=== PATIENT | male | born 1955 | race Caucasian/White ===

== ENCOUNTER 2016-12-09 08:54 | Outpatient (CLI) | payer BC ==
[2016-12-09 12:03] LABS: Hematocrit 43.1 % (42.0-52.0); Mean Platelet Volume 7.5 fL (7.4-10.4); Red Blood Cell (RBC) Count 4.41 mill/uL (4.70-6.10); White Blood Cell (WBC) Count 9.9 thou/uL (4.8-10.8)
== END 2016-12-09 08:55 | disposition home or self-care (01) ==
LOC: LABBT 08:54
PROVIDERS: ATTEND Internal Medicine Cardiovascular Disease
DX: Z01.810 Encounter for preprocedural cardiovascular examination (principal); I25.10 Atherosclerotic heart disease of native coronary artery without angina pectoris
CPT/HCPCS: 85027

== ENCOUNTER 2016-12-14 05:44 | Day surgery (SDC) | payer BC ==
[2016-12-09 09:18] VITALS: BMI 24.4
[2016-12-14] MEDS ORDERED: Midazolam HCl 2 mg/2 ml Vial ONE (07:39)
[2016-12-14] MEDS ORDERED: Fentanyl 100 MCG/2 ML VIAL ONE ×3 (07:40→09:06)
[2016-12-14] MEDS ORDERED: Nitroglycerin 100MG/250ML BOT 250 ML ONE (07:52)
[2016-12-14] MEDS ORDERED: traMADol HCl 50 MG TAB ONE (12:51)
[2016-12-14] MEDS ORDERED: Iopamidol 370 76% 100 ML VIAL ONE (15:52)
--- NOTE | 2016-12-14 17:07 | CON ---
DATE OF CONSULTATION: 12/14/2016 HISTORY OF PRESENT ILLNESS: This is a 61-year-old gentleman with cardiovascular risk factors of smo dyllan, hypertension, and untreated dyslipidemia. He has been having exertional bilateral jaw discomf ort radiating down into his left arm, occurring with increasing frequency with a couple of episodes at rest at night. Typically the symptoms occur with exertion, although he is not very active. Exer tion mainly walking in his case. He has not had a stress test, but did undergo cardiac catheterizat ion today demonstrating a moderate lesions in the LAD and diagonal. There are some mild to moderate ostial circumflex disease and a codominant normal right coronary artery. Family history is positiv e for heart disease in a brothers and father. His also has had previous coronary bypass grafti ng. As mentioned, he has hypertension and dyslipidemia, but has been intolerant of statins. He has been followed along with EKGs and cardiac echo for a number of years, although only recently began having symptoms. In 2006, he had a 50% distal LAD lesion. His ejection fraction has been estimated to be greater than 50% in the past, although has not had an echo that I am aware of in about 10 yea rs. PAST MEDICAL HISTORY: Includes otherwise Chiari malformation type 1, which has been repaired. PAST SURGICAL HISTORY: Includes Chiari malformation repair, and anterior approach to cervical spine surgery most recently by Dr. Bearden, previous right shoulder surgery by Dr. Arzate, previous eduardo ateral knee surgeries. MEDICATIONS: Include Lunesta 3 mg at bedtime, aspirin 81 a day, Xanax 1 mg 3 times a day as needed, aripiprazole 5 mg at bedtime, citalopram 40 mg daily, lisinopril 5 mg at bedtime, Toprol-XL 25 mg d aily, nitroglycerin for pain which does relieve his jaw and arm pain and most recently, Crestor 10 m g at bedtime. ALLERGIES: CRESTOR causing muscle aches, SIMVASTATIN muscle aches, ATORVASTATIN muscle aches. PHYSICAL EXAMINATION: GENERAL: Alert, cooperative gentleman. Height 71 inches, weight 175 pounds. VITAL SIGNS: Heart rate 90, blood pressure 130/80. NECK EXAMINATION: No carotid bruits. LUNGS: Clear to auscultation. CARDIAC EXAMINATION: Regular rate and rhythm. No murmurs. ABDOMEN: Soft, nontender. EXTREMITIES: He has a right arm dominant and has intact pulses throughout both upper and lower extr emities including all pedal pulses. He has no peripheral edema. NEUROLOGIC EXAM: The patient is appropriate and oriented. ASSESSMENT: I have reviewed the cardiac catheterization and the patient does have number of lesions in his left anterior descending and the worst of which may be a 70% with some contrast dropout. He has about a 50-70% stenosis in the mid diagonal. Circumflex is codominant with a relatively normal looking vessels except perhaps an ostial stenosis that is bhon-zh-ieyyrsor right coronary artery is normal. PLAN: I have discussed the possibility of coronary bypass grafting with the patient; at this time, he is really not interested in proceeding. I have explained that this will relieve his symptoms and he said if the only benefit, then he will continue using his nitroglycerin for relief. I have stat ed that I let him discuss it further with his and I will contact him again by phone after I hav e reviewed the films with Dr. Soria.
== END 2016-12-14 13:50 | disposition home or self-care (01) ==
LOC: CCL 05:44
PROVIDERS: ATTEND Internal Medicine Cardiovascular Disease
DX: I25.119 Atherosclerotic heart disease of native coronary artery with unspecified angina pectoris (principal); I10 Essential (primary) hypertension; E78.5 Hyperlipidemia, unspecified; F17.200 Nicotine dependence, unspecified, uncomplicated; Z88.8 Allergy status to other drugs, medicaments and biological substances; Z79.899 Other long term (current) drug therapy; Z98.890 Other specified postprocedural states; Z82.49 Family history of ischemic heart disease and other diseases of the circulatory system
CPT/HCPCS: 76942; 93458; 99152; C1769; J1644; J2250; J3010

== ENCOUNTER 2016-12-20 09:15 | Inpatient (IN) | payer BC ==
[2016-12-21] MEDS ORDERED: Fentanyl 100 MCG/2 ML VIAL ONE (06:35)
[2016-12-21] MEDS ORDERED: Midazolam HCl 5 mg/5 ml Vial ONE (06:35)
[2016-12-21] MEDS ORDERED: Vecuronium 10 MG VIAL ONE ×2 (06:35→07:32)
[2016-12-21] MEDS ORDERED: Dexmedetomidine 200 MCG/2 ML VIAL ONE (06:35)
[2016-12-21] MEDS ORDERED: Heparin 10,000 UNITS/1 ML VIAL 30,000 UNITS in Sodium Chloride 0.9% 1,000 ML FS SCH (06:45)
[2016-12-21] MEDS ORDERED: Dexamethasone 20 MG/5 ML VIAL ONE (07:32)
[2016-12-21] MEDS ORDERED: Esmolol 100 MG/10 ML VIAL ONE (07:32)
[2016-12-21] MEDS ORDERED: Lidocaine 2% PF 10 ML AMP (For Epidural Use) ONE (07:32)
[2016-12-21] MEDS ORDERED: PHENYLEPHRINE-NS 100 MCG/ML 10 ML SYRINGE ONE (07:32)
[2016-12-21] MEDS ORDERED: Lidocaine 1% PF 5 ML VIAL ONE (07:32)
[2016-12-21] MEDS ORDERED: Ondansetron HCl/PF 4 MG/2 ML Vial ONE (07:32)
[2016-12-21] MEDS ORDERED: Propofol 200 MG/20 ML VIAL ONE (07:32)
[2016-12-21] MEDS ORDERED: Glycopyrrolate 0.2 MG/ML 5 ML SYRINGE ONE (07:32)
[2016-12-21] MEDS ORDERED: Ketorolac Tromethamine 30 MG/ML VIAL ONE (07:32)
[2016-12-21] MEDS ORDERED: Guaifenesin DM 100-10/5 ML UDCUP PO PRN (10:34)
[2016-12-21] MEDS ORDERED: Acetaminophen 325 MG TAB PO PRN ×2 (10:34→11:13)
[2016-12-21] MEDS ORDERED: Bisacodyl 5 MG TAB PO PRN (10:34)
[2016-12-21] MEDS ORDERED: Morphine Sulfate 2 MG/ML SYRINGE SLOW IVP PRN (10:34)
[2016-12-21] MEDS ORDERED: Magnesium 2 GM/NS 0.9% 100 ML 2 GM in Premix Bag 1 BAG IVPB SCH (10:34)
[2016-12-21] MEDS ORDERED: Ondansetron HCl/PF 4 MG/2 ML Vial IVP PRN ×2 (10:34→16:16)
[2016-12-21] MEDS ORDERED: Post-Op Insulin Drip Protocol IVPB ONE (10:34)
[2016-12-21] MEDS ORDERED: Mag-Al 1200 mg/1200 mg/30 ML UDCUP PO PRN (10:34)
[2016-12-21] MEDS ORDERED: Potassium Chloride 20 MEQ/100 ML PREMIX BAG IVPB PRN (10:34)
[2016-12-21] MEDS ORDERED: DOPamine 400 MG/D5W 250 ML 250 ML IVPB PRN (10:34)
[2016-12-21] MEDS ORDERED: Fentanyl 100 MCG/2 ML VIAL SLOW IVP PRN (10:34)
[2016-12-21] MEDS ORDERED: HYDROcodone/Acetaminophen 5/325 mg Tablet PO PRN ×2 (10:34)
[2016-12-21] MEDS ORDERED: Bisacodyl 10 MG SUPP PR PRN (10:34)
[2016-12-21] MEDS ORDERED: Hetastarch 6% 500 ML 500 ML IVPB PRN (10:34)
[2016-12-21] MEDS ORDERED: ALPRAZolam 1 MG TAB PO PRN (10:34)
[2016-12-21] MEDS ORDERED: Nitroglycerin 50 MG/250 ML BOT 250 ML IVPB PRN (10:34)
[2016-12-21] MEDS ORDERED: Promethazine HCl 25 MG/ML VIAL IM PRN ×2 (10:34→16:16)
[2016-12-21] MEDS ORDERED: Phenylephrine 10 MG/NS 250 ML 250 ML IVPB PRN (10:34)
[2016-12-21] MEDS ORDERED: Dextrose 5% in Water 1,000 ML IV PRN (10:36)
[2016-12-21] MEDS ORDERED: Dextrose 50% Abboject 50 ML SYRINGE SLOW IVP PRN (10:36)
[2016-12-21] MEDS: Fentanyl 100 MCG/2 ML VIAL SLOW IVP PRN ×3 (11:17→14:28)
[2016-12-21 11:18] LABS: #Basophils 0.1 thou/uL (0.0-0.2); #Eosinphils 0.3 thou/uL (0.0-0.7); #Lymphocytes 2.9 thou/uL (1.20-3.40); #Monocytes 0.5 thou/uL (0.11-0.59); #Neutrophils 15.8 thou/uL (1.40-6.50); %Basophils 0.3 % (0.0-1.0); %Eosinophils 1.7 % (0.0-10.0); %Lymphocytes 14.7 % (21.0-51.0); %Monocytes 2.5 % (0.0-10.0); Hematocrit 35.8 % (42.0-52.0); Mean Platelet Volume 6.8 fL (7.4-10.4); Red Blood Cell (RBC) Count 3.65 mill/uL (4.70-6.10); White Blood Cell (WBC) Count 19.5 thou/uL (4.8-10.8)
--- NOTE | 2016-12-21 11:19 | OP ---
DATE OF PROCEDURE: 12/21/2016 PREOPERATIVE DIAGNOSIS: Coronary artery disease. POSTOPERATIVE DIAGNOSIS: Coronary artery disease. PROCEDURE: Off pump coronary bypass graft x2, left internal mammary artery to a 2 mm LAD, saphenous vein graft to a 1.5 mm diagonal. SURGEON: Dr. Jw Armstrong REAL PROPERTY APPRAISER: Ortega Lewis M.D. TRANSFUSION: None. PROCEDURE IN DETAIL: After adequate anesthesia had been obtained, I harvested a short section of sa phenous vein from the left thigh. This was a good quality vein. Following this, I performed a medi an sternotomy entering the right pleura with a saw in one small area and then the mammary artery was harvested. After heparinization, the mammary was divided distally and treated with intraluminal pa paverine with good flow. It was passed posterior to the thymus gland. This gland was ultimately pa rtially divided. Following an incision of the pericardium, traction sutures were placed on the left side of the pericardium. Two laparotomy pads were placed behind the heart and after stabilization, the octopus stabilizer was used to immobilize the diagonal. This was opened and was about a 1.5 mm vessel. It was done rather distally due to known plaque in its mid portion. Saphenous vein anasto mosis was completed here. Following this, the LAD was stabilized and a loop passed proximally. The LAD was opened following which the mammary artery was anastomosed to this vessel. Prior to complet ing the suture line, the loop was released from the LAD and there was very minimal flow here; howeve r, there was good flow with release of the mammary flow. After tying this suture the mammary pedicl e was secured to the myocardium. The heart replaced into the pericardium. After permissive hypoten annabelle had been obtained, the aorta was controlled with a partial occluding clamp and a single venous anastomosis performed on the aortic root. Following completion of this, protamine was given to part ially reverse the heparin. Mediastinal and bilateral drains were placed, following which the sternu m was reapproximated with #7 interrupted wire. Vancomycin paste and platelet-enriched blood were us ed on the sternal edges as was platelet-poor plasma. Subcutaneous tissue and skin were closed in la yers.
[2016-12-21 11:22] LABS: PTT 33.7 SEC (22.9-36.1); Prothrombin Time 14.7 SEC (12.0-14.7)
[2016-12-21] MEDS: Sodium Chloride 0.9% 1,000 ML IV SCH (11:22)
[2016-12-21] MEDS: Ketorolac Tromethamine 30 MG/ML VIAL IVP SCH ×3 (11:33→23:12)
[2016-12-21 11:39] LABS: Anion Gap 10 mmol/L (10-20); BUN (Urea Nitrogen) 11 mg/dL (8.4-25.7); Calc. Creatinine Clearance 243 mL/min (70-130); Calcium 7.9 mg/dL (7.8-10.44); Carbon Dioxide 25 mmol/L (22-29); Chloride 110 mmol/L (98-107); Estimated GFR-MDRD Greater than 90
[2016-12-21 11:41] VITALS: BMI 26.2
[2016-12-21] MEDS: Insulin Regular 300 UNITS/3 ML VIAL SC PRN ×2 (12:17→16:17)
[2016-12-21] MEDS ORDERED: traMADol HCl 50 MG TAB PO PRN (12:23)
--- NOTE | 2016-12-21 13:06 | RAD ---
CHEST ONE VIEW: History: Post open heart surgery. Comparison: Chest two view, 12-20-16. FINDINGS: Central venous catheter is present with tip in the right atrium. Heart size is similar. There are opacities along the hilum of both lungs. No pneumothorax. Left thoracostomy is present. Small left effusion. Mediastinal drain is present as well as right thoracostomy drain. IMPRESSION: Expected post-operative findings. No complications. POS: [facility]
[2016-12-21] MEDS ORDERED: fentaNYL 75 mcg/hour Patch TD SCH (14:00)
[2016-12-21] MEDS ORDERED: Zolpidem Tartrate 5 MG TAB PO PRN (16:16)
[2016-12-21] MEDS ORDERED: Naloxone HCl 0.4 mg/ml Vial IV PRN (16:16)
[2016-12-21] MEDS ORDERED: diphenhydrAMINE HCl 50 MG/ML 1 ML VIAL IM/IV PRN (16:16)
[2016-12-21] MEDS ORDERED: diphenhydrAMINE HCl 25 MG CAP PO PRN (16:16)
[2016-12-21 16:25] LABS: Hematocrit 35.6 % (42.0-52.0)
[2016-12-21] MEDS: Fentanyl 5000 MCG/250 ML CADD IV PRN (16:30)
[2016-12-21] MEDS ORDERED: Famotidine/PF 20 mg/2ml Vial SLOW IVP SCH (21:00)
[2016-12-21] MEDS ORDERED: Zolpidem Tartrate 5 MG TAB PO SCH (21:00)
--- NOTE | 2016-12-21 23:26 | CON ---
DATE OF CONSULTATION: 12/21/2016 HISTORY OF PRESENT ILLNESS: Mr. Duncan is a 61-year-old male who underwent coronary artery bypass grafting today. He was extubated in Recovery room. His only complaint is severe substernal pain. PAST MEDICAL HISTORY: 1. Remarkable for admission on 05/27 with altered mental status. It was felt that this was seconda ry to an accidental overdose and at that time, he was discharged on tramadol, Xanax, Hagaman, Lunesta, lisinopril, aspirin, and Celexa. 2. He has a history of Arnold-Chiari malformation. 3. History of chronic pain. 4. History of shoulder surgery on the right. 5. History of depression and anxiety. 6. History of Burgos's palsy. 7. History of hypertension. 8. History of surgery for his Arnold-Chiari malformation in 1979. 9. History of neck surgery. 10. History of bilateral knee surgery for ACL repairs. SOCIAL HISTORY: He is a smoker in the past, it is not clear if he is a drinker. REVIEW OF SYSTEMS: Remarkable only for chest discomfort, otherwise negative. PHYSICAL EXAMINATION: VITAL SIGNS: Blood pressure 104/67, heart rate 80, respiratory rate 22, oximetry is 96. HEENT: Pupils are equal. Sclerae is anicteric. NECK: Supple. LUNGS: Clear anteriorly and laterally. HEART: Regular rhythm. ABDOMEN: Soft and nontender. LABORATORY DATA: White count 19.5, hemoglobin 11.6, platelets 256. Sodium 140, potassium 4.7, chlo ride 110, bicarbonate 25, BUN 11, creatinine 0.8. IMPRESSION: 1. Status post coronary artery bypass grafting with a AHMADI to his LAD, saphenous to his diagonal. 2. Chronic pain with pain complaints out of proportion, what we normally see after surgery, also di scussed with nurse about the fentanyl patch and he says he would like that, but probably Dr. Armstrong's plan which is for a CENTRAL STORES ATTENDANT pump will be more immediate relief and give him some control. He appears t o be stable at this time.
[2016-12-22 04:45] LABS: #Lymphocytes 2.4 thou/uL (1.20-3.40); #Monocytes 1.4 thou/uL (0.11-0.59); #Neutrophils 12.6 thou/uL (1.40-6.50); %Basophils 0.1 % (0.0-1.0); %Lymphocytes 14.4 % (21.0-51.0); %Monocytes 8.6 % (0.0-10.0); Hematocrit 31.8 % (42.0-52.0); Mean Platelet Volume 7.1 fL (7.4-10.4); Red Blood Cell (RBC) Count 3.24 mill/uL (4.70-6.10); White Blood Cell (WBC) Count 16.4 thou/uL (4.8-10.8)
[2016-12-22 04:54] LABS: Anion Gap 12 mmol/L (10-20); BUN (Urea Nitrogen) 20 mg/dL (8.4-25.7); Calc. Creatinine Clearance 111 mL/min (70-130); Carbon Dioxide 22 mmol/L (22-29); Chloride 105 mmol/L (98-107); Estimated GFR-MDRD Greater than 90
[2016-12-22] MEDS: Ketorolac Tromethamine 30 MG/ML VIAL IVP SCH ×4 (06:05→23:19)
[2016-12-22] MEDS: Aspirin 325 MG TAB PO SCH (08:37)
--- NOTE | 2016-12-22 09:17 | RAD ---
AP CHEST: Indication: Status post open heart surgery. Comparison: 12-21-16 FINDINGS: No pneumothorax is evident. There is increasing atelectasis within both lung bases. Bilateral thorac ostomy tube, mediastinal drain and right subclavian central venous catheter are stable. Sternotomy c hanges are similar. There is partial visualization of an ACDF involving the lower cervical spine. IMPRESSION: 1. Increasing atelectasis within both lung bases. 2. No pneumothorax. 3. Tubes and lines are stable. POS: [facility]
[2016-12-22 14:17] LABS: Oxyhemoglobin 95.4 % (94.0-97.0); Sodium 140 mmol/L (135-148)
[2016-12-22 14:24] LABS: Oxyhemoglobin 94.5 % (94.0-97.0); Sodium 141 mmol/L (135-148)
[2016-12-22 14:38] LABS: Mode OR ABG; Vent YES
[2016-12-22 14:42] LABS: Mode OR ABG; Vent YES
--- NOTE | 2016-12-22 16:54 | PRG ---
DATE OF SERVICE: 12/22/2016 SUBJECTIVE: Mr. Duncan is much more cooperative today. He was actually tearful when I was in the room and was apologizing for his behavior yesterday. I have explained to him that he did nothing or said nothing offensive to me, but apparently he said something do his that led to some causing in her leaving, angry. OBJECTIVE: VITAL SIGNS: Currently 97/51, heart rate 75, respiratory rate 21, and oximetry is 90%. LUNGS: Remarkable for equal breath sounds. HEART: Regular rhythm. ABDOMEN: Soft. LABORATORY DATA: White count 16.4, hemoglobin 10.6, platelets 257. Electrolytes are normal. Intak e and output negative 194. IMPRESSION: 1. Status post coronary bypass grafting, clinically stable. 2. Tobacco use up until this admission with no wheezing. 3. History of opiate use and a drug overdoses in the past, on a SYSTEMS INTEGRATOR pump. He appeared stable at th is time.
[2016-12-23] MEDS: Ketorolac Tromethamine 30 MG/ML VIAL IVP SCH (04:54)
[2016-12-23] MEDS ORDERED: Guaifenesin DM 100-10/5 ML UDCUP PO PRN (06:57)
[2016-12-23] MEDS ORDERED: Nitroglycerin 0.4 MG TAB 1 EACH SL PRN (06:57)
[2016-12-23] MEDS ORDERED: diphenhydrAMINE HCl 25 MG CAP PO PRN (06:57)
[2016-12-23] MEDS ORDERED: Artificial Tears 18 DROP/0.9 ML EA EYE PRN (06:57)
[2016-12-23] MEDS ORDERED: Bisacodyl 5 MG TAB PO PRN (06:57)
[2016-12-23] MEDS ORDERED: Bisacodyl 10 MG SUPP PR PRN (06:57)
[2016-12-23] MEDS ORDERED: Mineral Oil ENEMA PR PRN (06:57)
[2016-12-23] MEDS ORDERED: Mag-Al 1200 mg/1200 mg/30 ML UDCUP PO PRN (06:57)
[2016-12-23] MEDS: Aspirin 325 MG TAB PO SCH (09:50)
[2016-12-23] MEDS: ALPRAZolam 1 MG TAB PO PRN ×2 (12:25→22:15)
[2016-12-23] MEDS ORDERED: ALPRAZolam 1 MG TAB PO SCH (15:00)
[2016-12-23] MEDS: Fentanyl 5000 MCG/250 ML CADD IV PRN (16:58)
--- NOTE | 2016-12-23 17:16 | PRG ---
DATE OF SERVICE: 12/23/2016 SUBJECTIVE: Mr. Duncan today is complaining of left shoulder and right hip pain. He says it was s imilar pain yesterday morning and it went away. OBJECTIVE: VITAL SIGNS: Stable. He is afebrile, heart rate 60, respiratory rate is 18, oximetry is 91 on 2 li ters, blood pressure 125/60. : Bladder was scanned it only has 125 mL of urine in his [place] is removed this morning. LUNGS: Clear. HEART: Regular rhythm. LABORATORY DATA: White count 16.4, hemoglobin 10.6, platelets 257,000. Electrolytes are normal. IMPRESSION: 1. Status post coronary artery bypass grafting. 2. Tobacco use. 3. History of opiate use and an inadvertent drug overdose in the past, now on a CARE MANAGEMENT ASSISTANT pump. Pain man agement will continue to monitor his CARE MANAGEMENT ASSISTANT. He is not clinically showing signs of having any significant obstructive lung disease with his histo ry of tobacco abuse.
[2016-12-23] MEDS: Simethicone Chewable 80 MG TAB PO PRN (22:15)
[2016-12-23] MEDS: Zolpidem Tartrate 5 MG TAB PO PRN (22:16)
[2016-12-24] MEDS ORDERED: Milk Of Magnesia 30 ML UDCUP PO PRN (06:11)
[2016-12-24] MEDS ORDERED: Mometasone/Formoterol 120 PUFF INHALER INH SCH ×2 (08:07→08:30)
--- NOTE | 2016-12-24 08:22 | PRG ---
DATE OF SERVICE: 12/24/2016 He continues to have pain in different places. He tells me and his tells me he has a history o f panic attacks as well as a conversion disorder. Obviously this makes it difficult to interpret th e severity of his pain. I discussed adjusting medications, but at this point in time it is probably better just to keep him on his pain medicine via [employer]/PATTERN ILLUSTRATOR pump. He walked 8-9 times yesterday according to the . PHYSICAL EXAMINATION: LUNGS: His lungs are clear. HEART: Regular rhythm. ABDOMEN: Abdomen is soft. VITAL SIGNS: He is afebrile, heart rate in the 70s, oximetry is 92 on 3 liters. He might benefit from some Symbicort. I think the albuterol would make him too anxious. We will start the Symbicort. Continue with physi luz marina therapy. At some point in time his PATTERN ILLUSTRATOR will need to be discontinued.
[2016-12-24 08:32] LABS: Bilirubin Negative (Negative); Blood, Urine Small (Negative); Glucose, Urine (Dipstick) Negative (Negative); Ketone, Urine 40 mg/dL (Negative); Nitrite Negative (Negative); Protein, Urine (Dipstick) Trace mg/dL (Neg-Trace); Urobilinogen 0.2 mg/dL (0.2-1.0)
[2016-12-24 08:38] LABS: Bacteria/HPF None Seen HPF (None Seen); Hyaline Casts/LPF 0-3 HYALINE CAST LPF (0-3 Hyaline); Squamous Epithelial None Seen HPF (0-3)
[2016-12-24] MEDS: Aspirin 325 MG TAB PO SCH (08:54)
[2016-12-24] MEDS: Sulfameth/Trimethoprim DS 800-160mg TAB PO SCH ×2 (08:55→21:35)
--- NOTE | 2016-12-24 09:41 | PRG ---
DATE OF SERVICE: 12/24/2016 Mr. Duncan has new onset of pain including some abdominal pain with a breath. He is not having any angina. PHYSICAL EXAMINATION: VITAL SIGNS: Blood pressure 138/67, pulse 74 regular. LUNGS: Clear. CARDIAC: Normal S1, normal S2. ABDOMEN: Soft, nontender. EXTREMITIES: There is no edema. ASSESSMENT: 1. Postoperative status. 2. Coronary artery disease. 3. Maintaining sinus rhythm. PLAN: Continue current medical regimen which includes aspirin, antibiotics, pain medicines as neede d, rosuvastatin.
[2016-12-24] MEDS: Mometasone/Formoterol 120 PUFF INHALER INH SCH (18:25)
[2016-12-24] MEDS: Zolpidem Tartrate 5 MG TAB PO PRN (21:00)
[2016-12-24] MEDS: Simethicone Chewable 80 MG TAB PO PRN (21:39)
[2016-12-24] MEDS: ALPRAZolam 1 MG TAB PO PRN (21:39)
[2016-12-25] MEDS: Mometasone/Formoterol 120 PUFF INHALER INH SCH ×2 (08:43→18:59)
[2016-12-25] MEDS: Aspirin 325 MG TAB PO SCH (08:54)
[2016-12-25] MEDS: Sulfameth/Trimethoprim DS 800-160mg TAB PO SCH ×2 (08:54→21:03)
[2016-12-25] MEDS ORDERED: Magnesium Citrate 300 ML BOT PO SCH (09:30)
[2016-12-25] MEDS ORDERED: predniSONE 20 MG TAB PO SCH (17:00)
[2016-12-25 17:24] LABS: #Basophils 0.1 thou/uL (0.0-0.2); #Eosinphils 0.4 thou/uL (0.0-0.7); #Lymphocytes 1.7 thou/uL (1.20-3.40); #Monocytes 1.5 thou/uL (0.11-0.59); #Neutrophils 9.1 thou/uL (1.40-6.50); %Basophils 0.4 % (0.0-1.0); %Lymphocytes 13.7 % (21.0-51.0); %Monocytes 11.7 % (0.0-10.0); Mean Platelet Volume 7.2 fL (7.4-10.4); Red Blood Cell (RBC) Count 2.77 mill/uL (4.70-6.10); White Blood Cell (WBC) Count 12.7 thou/uL (4.8-10.8)
[2016-12-25 17:47] LABS: ALT (SGPT) 18 U/L (8-55); AST (SGOT) 31 U/L (5-34); Alkaline Phosphatase 182 U/L (40-150); Anion Gap 12 mmol/L (10-20); BUN (Urea Nitrogen) 16 mg/dL (8.4-25.7); Bilirubin, Total 0.3 mg/dL (0.2-1.2); Calc. Creatinine Clearance 110 mL/min (70-130); Calcium 8.3 mg/dL (7.8-10.44); Carbon Dioxide 27 mmol/L (22-29); Chloride 103 mmol/L (98-107); Estimated GFR-MDRD Greater than 90; Globulin 2.6 g/dL (2.4-3.5); Protein, Total 5.8 g/dL (6.0-8.3)
[2016-12-25 19:44] LABS: Bilirubin Small (Negative); Blood, Urine Negative (Negative); Glucose, Urine (Dipstick) Negative (Negative); Ketone, Urine Trace mg/dL (Negative); Nitrite Negative (Negative); Protein, Urine (Dipstick) Negative (Neg-Trace)
--- NOTE | 2016-12-25 20:50 | PRG ---
DATE OF SERVICE: 12/25/2016 SERVICE: Pulmonary Medicine. INTERVAL HISTORY: The patient continues to have flank discomfort. Currently, it is a constant elec trical burning sensation. It radiates from his right flank up into the xiphoid region. It is exace rbated by brief episodes that last less than 1 second of an electrical like sharp discomfort. The s harp discomforts are occurring every 10-30 seconds. He has been using his pain medication as schedu led. It does not seem to help significantly with his discomfort. In addition to this, he notes kevon n in at least 10 different musculoskeletal areas. He denies any current fevers, chills, nausea, vom iting or different types of chest discomfort. He is not short-winded. He has been able to get up a nd walk around without significant difficulties. This pain is exacerbated by taking deep breath, co ughing, or sighing. PHYSICAL EXAMINATION: VITAL SIGNS: Afebrile, currently with a T-max of 99.3. Pulse 77, blood pressure 111/56, respiratio ns 22 and saturation 94% on room air. GENERAL: The patient is awake and alert. No apparent distress. LUNGS: Decent air entry with no prolonged expiratory phase. I do not appreciate wheezing, rhonchi or crackles. There is no rubs. HEART: Normal rate, regular. ABDOMEN: Soft, nontender and nondistended. Bowel sounds are positive. MUSCULOSKELETAL: No cyanosis or clubbing. There is no pitting in the bilateral lower extremities. NEUROLOGIC: Grossly nonfocal. ASSESSMENT: 1. Coronary artery bypass graft, postoperative day #4. 2. Flank discomfort as mentioned above. PLAN: There might be a respirophasic component to this thing. It is difficult to ascertain because the patient has multiple somatic complaints. I will keep the pain medicines where they currently a re. I will give him steroids for 2-3 days to see if this seems to decrease the inflammation. If he remains in house, we will repeat basic laboratories tomorrow morning. At the very most, CT scan of the belly can be considered looking into whether or not a stone could be present. The patient has never had this type of discomfort before, but it would be very strange for some unrelated process to manifest during his hospital stay.
[2016-12-25] MEDS: ALPRAZolam 1 MG TAB PO PRN (21:03)
[2016-12-25] MEDS: Metoprolol Tartrate 25 MG TAB PO SCH (21:11)
[2016-12-26] MEDS: Mometasone/Formoterol 120 PUFF INHALER INH SCH ×2 (08:09→19:01)
[2016-12-26] MEDS: predniSONE 20 MG TAB PO SCH (08:54)
[2016-12-26] MEDS: Metoprolol Tartrate 25 MG TAB PO SCH ×2 (08:54→20:12)
[2016-12-26] MEDS: Aspirin 325 MG TAB PO SCH (08:54)
[2016-12-26] MEDS: Sulfameth/Trimethoprim DS 800-160mg TAB PO SCH ×2 (08:54→20:10)
[2016-12-26] MEDS ORDERED: FLU VACC QS2017-18 36 mo. & older 0.5 ML SYRINGE IM ONE (12:00)
[2016-12-26] MEDS ORDERED: Furosemide 20 MG/2 ML VIAL SLOW IVP SCH (13:00)
--- NOTE | 2016-12-26 14:07 | RAD ---
2 VIEWS CHEST: Date: 12/26/16 COMPARISON: 12/22/16. HISTORY: Shortness of breath. FINDINGS: Two views of the chest show an enlarged cardiomediastinal silhouette. There are small bilateral pleu ral effusions. The central venous catheter is unchanged in position. There is no evidence of consoli dation or mass. IMPRESSION: Small bilateral pleural effusions. POS: [facility]
--- NOTE | 2016-12-26 18:43 | PRG ---
DATE OF SERVICE: 12/26/2016 SERVICE: Pulmonary Medicine. INTERVAL HISTORY: The patient was doing fairly well, but this morning, he was taken off of oxygen a nd his saturations were 88%. With ambulation, he had profound dyspnea that limited his activity. Edu rouse also had weakness. His saturations dropped to 82%. He was brought back to his room and put back on oxygen. At that point, I was given a phone call. We got a chest x-ray and gave him a dose of La six. He is starting to feel a little bit better, but he continues to have marginal saturations. PHYSICAL EXAMINATION: VITAL SIGNS: Afebrile, pulse 63, blood pressure 103/53, respirations 16, saturation 90% on 2 liters nasal cannula. GENERAL: The patient is awake and alert, in no apparent distress. LUNGS: Much improved air entry. There are dependent crackles that are appreciated today. No prolo nged expiratory phase or wheezing. HEART: Normal rate, regular. ABDOMEN: Soft, nontender, nondistended. Bowel sounds positive. MUSCULOSKELETAL: No cyanosis or clubbing. No pitting in the bilateral lower extremities. NEUROLOGIC: Grossly nonfocal. LABORATORY DATA: WBC 12.7 and downtrending, hemoglobin 9.1, platelets 251,000. Differential is nor malizing. INR 1.1. Basic metabolic profile is completely unremarkable. AST and ALT are normal. A lkaline phosphatase is 182. IMAGING: Chest x-ray demonstrates areas of atelectasis of the bilateral lower lobes. There are als o bilateral pleural effusions identified. Central venous catheter is in good position. No evidence of an overt consolidation or mass. ASSESSMENT: 1. Acute hypoxic respiratory failure. 2. Bilateral pleural effusions. 3. Coronary artery bypass graft, postoperative day #5. 4. Flank discomfort, improving with prednisone. PLAN: We will continue the prednisone. I gave him a dose of Lasix. I will do orthostatics in the morning and repeat a dose of Lasix. I gave the patient the option of going home on oxygen for a per iod of time versus staying in the hospital for closer observation. His family would like for him to stay in the hospital for 1 additional night while we try to focus on fixing the problem. I believe that his persistent hypoxemia is because of a combination of the bilateral effusions and associated atelectasis. With increasing deep breathing, now that his flank pain is under better control, hope fully this will resolve over the next 24 hours. If he is off oxygen in the morning, disposition aleksandra e will be indicated. I will repeat the LFTs. Perhaps, these represent a little hepatic congestion.
[2016-12-26] MEDS: Sodium Chloride 0.9% 1,000 ML IV SCH (19:57)
[2016-12-26] MEDS: Zolpidem Tartrate 5 MG TAB PO PRN (20:21)
[2016-12-27 06:01] LABS: #Eosinphils 0.2 thou/uL (0.0-0.7); #Lymphocytes 3.8 thou/uL (1.20-3.40); #Monocytes 1.5 thou/uL (0.11-0.59); #Neutrophils 9.8 thou/uL (1.40-6.50); %Basophils 0.3 % (0.0-1.0); %Eosinophils 1.2 % (0.0-10.0); %Monocytes 9.5 % (0.0-10.0); Mean Platelet Volume 7.7 fL (7.4-10.4); Red Blood Cell (RBC) Count 2.83 mill/uL (4.70-6.10); White Blood Cell (WBC) Count 15.4 thou/uL (4.8-10.8)
[2016-12-27 06:29] LABS: ALT (SGPT) 33 U/L (8-55); AST (SGOT) 33 U/L (5-34); Alkaline Phosphatase 187 U/L (40-150); Anion Gap 10 mmol/L (10-20); BUN (Urea Nitrogen) 18 mg/dL (8.4-25.7); Bilirubin, Total 0.3 mg/dL (0.2-1.2); Calc. Creatinine Clearance 114 mL/min (70-130); Calcium 8.8 mg/dL (7.8-10.44); Carbon Dioxide 29 mmol/L (22-29); Chloride 103 mmol/L (98-107); Estimated GFR-MDRD Greater than 90; Globulin 2.6 g/dL (2.4-3.5); Protein, Total 5.8 g/dL (6.0-8.3)
[2016-12-27] MEDS: Mometasone/Formoterol 120 PUFF INHALER INH SCH ×2 (06:51→19:16)
[2016-12-27] MEDS ORDERED: Furosemide 20 MG/2 ML VIAL SLOW IVP SCH (07:10)
[2016-12-27] MEDS: Aspirin 325 MG TAB PO SCH (09:27)
[2016-12-27] MEDS: Sulfameth/Trimethoprim DS 800-160mg TAB PO SCH ×2 (09:27→20:35)
[2016-12-27] MEDS: Metoprolol Tartrate 25 MG TAB PO SCH (09:28)
[2016-12-27] MEDS: predniSONE 20 MG TAB PO SCH (09:29)
--- NOTE | 2016-12-27 13:14 | PRG ---
DATE OF SERVICE: 12/27/2016 SUBJECTIVE: Mr. Duncan is doing okay today, but still has relatively low oxygen saturations. PHYSICAL EXAMINATION: VITAL SIGNS: Blood pressure 104/54, pulse 56, it is regular. LUNGS: Clear. CARDIAC: Normal S1 and S2. ABDOMEN: Soft, nontender. EXTREMITIES: No edema. ASSESSMENT: 1. Status post bypass surgery. 2. Oxygen level is still relatively low. PLAN: 1. He is on aspirin. 2. He is on low dose beta kuldip, metoprolol 12.5 mg twice a day. 3. Crestor 10 mg a day. 4. Consideration for home oxygen is being given.
--- NOTE | 2016-12-27 15:16 | PRG ---
DATE OF SERVICE: 12/27/2016 SUBJECTIVE: Mr. Duncan looks much better than he looked on Tuesday. OBJECTIVE: VITAL SIGNS: He is afebrile. Heart rate is in the 50s. Respiratory rate is in the teens. Oximetr y is 93% on 2 liters, earlier today it was between 87% and 90% on room air. I suspect his oxygen wi ll be discontinued by the time he is ready to go home. LUNGS: Remarkable for decreased breath sounds at his left base. HEART: Regular rhythm. ABDOMEN: Soft. PLAN: I do not think he will need oxygen tomorrow. We will see how he looks in the morning and the n hopefully can be discharged.
[2016-12-28 06:09] LABS: #Eosinphils 0.2 thou/uL (0.0-0.7); #Lymphocytes 3.9 thou/uL (1.20-3.40); #Monocytes 1.6 thou/uL (0.11-0.59); #Neutrophils 10.4 thou/uL (1.40-6.50); %Basophils 0.2 % (0.0-1.0); %Eosinophils 1.5 % (0.0-10.0); Hematocrit 29.4 % (42.0-52.0); Mean Platelet Volume 7.4 fL (7.4-10.4); Red Blood Cell (RBC) Count 3.01 mill/uL (4.70-6.10); White Blood Cell (WBC) Count 16.2 thou/uL (4.8-10.8)
[2016-12-28 06:35] LABS: ALT (SGPT) 34 U/L (8-55); AST (SGOT) 21 U/L (5-34); Alkaline Phosphatase 156 U/L (40-150); Anion Gap 13 mmol/L (10-20); BUN (Urea Nitrogen) 17 mg/dL (8.4-25.7); Bilirubin, Total 0.3 mg/dL (0.2-1.2); Calc. Creatinine Clearance 110 mL/min (70-130); Calcium 8.6 mg/dL (7.8-10.44); Carbon Dioxide 25 mmol/L (22-29); Chloride 104 mmol/L (98-107); Estimated GFR-MDRD Greater than 90; Globulin 2.7 g/dL (2.4-3.5); Protein, Total 5.8 g/dL (6.0-8.3)
[2016-12-28] MEDS: Mometasone/Formoterol 120 PUFF INHALER INH SCH (07:14)
[2016-12-28] MEDS: Aspirin 325 MG TAB PO SCH (09:23)
[2016-12-28] MEDS: Sulfameth/Trimethoprim DS 800-160mg TAB PO SCH (09:23)
[2016-12-28] MEDS: predniSONE 20 MG TAB PO SCH (09:23)
[2016-12-28 10:01] VITALS: TEMP 98.7
--- NOTE | 2016-12-28 13:08 | PRG ---
DATE OF SERVICE: 12/28/2016 Mr. Duncan is doing well. He is walking in the [place]. He is stable on his feet. PHYSICAL EXAMINATION: VITAL SIGNS: He is afebrile, heart rate 55, respiratory rate 20, oximetry is 94 on 1 liter. In my opinion he does not need to be sent home with oxygen. His blood pressure is 121/62. He is stable for followup as an outpatient with his cardiothoracic surgeon and his sales agent food vending service.
[2016-12-28 14:51] VITALS: BP 128/61
== END 2016-12-28 17:05 | disposition home or self-care (01) | DRG 235 ==
LOC: SURG A 12-21 05:55 → CCU 12-21 08:19 → 2NO 12-23 08:25
PROVIDERS: ADMIT Thoracic Surgery (Cardiothoracic Vascular Surgery); ATTEND Thoracic Surgery (Cardiothoracic Vascular Surgery)
PROC: 02100Z9 Bypass Coronary Artery, One Artery from Left Internal Mammary, Open Approach (ICD-10-PCS; principal; 2016-12-21)
PROC: 021009W Bypass Coronary Artery, One Artery from Aorta with Autologous Venous Tissue, Open Approach (ICD-10-PCS; 2016-12-21)
PROC: 06BQ0ZZ Excision of Left Saphenous Vein, Open Approach (ICD-10-PCS; 2016-12-21)
DX: I25.10 Atherosclerotic heart disease of native coronary artery without angina pectoris (principal); J96.01 Acute respiratory failure with hypoxia; J90 Pleural effusion, not elsewhere classified; J98.11 Atelectasis; R10.9 Unspecified abdominal pain; F32.9 Major depressive disorder, single episode, unspecified; F41.9 Anxiety disorder, unspecified; I10 Essential (primary) hypertension; F17.210 Nicotine dependence, cigarettes, uncomplicated; R52 Pain, unspecified; Z23 Encounter for immunization; Z88.8 Allergy status to other drugs, medicaments and biological substances
CPT/HCPCS: 36415; 36416; 36430; 71010; 71020; 80048; 80053; 81001; 81003; 82805; 85025; 85610; 85730; 86850; 86900; 86901; 87086; 90471; 90682; 90732; 93005; 93010; 93798; 94664; A4216; G0008; G0009; J1100; J1200; J1642; J1644; J1815; J1885; J1940; J2001; J2250; J2405; J2704; J3010; J3475; J7050; J7506; P9045; Q2036; S0028

== ENCOUNTER 2016-12-20 09:38 | Outpatient (CLI) | payer BC ==
--- NOTE | 2016-12-20 11:36 | RAD ---
CHEST 2 VIEWS: Date: 12/20/16 HISTORY: Preop. COMPARISON: Chest 1 view dated 05/18/15. FINDINGS: Lungs are clear. No pneumothorax or effusion. Cardiac silhouette and mediastinal contour is within n ormal limits. Minimal spondylotic changes of the thoracic spine. IMPRESSION: No acute intrathoracic abnormality. POS: [facility]
[2016-12-20 11:43] LABS: #Basophils 0.1 thou/uL (0.0-0.2); #Eosinphils 0.2 thou/uL (0.0-0.7); #Lymphocytes 3.8 thou/uL (1.20-3.40); #Monocytes 0.8 thou/uL (0.11-0.59); #Neutrophils 4.9 thou/uL (1.40-6.50); %Basophils 0.8 % (0.0-1.0); %Eosinophils 2.4 % (0.0-10.0); %Lymphocytes 38.7 % (21.0-51.0); %Monocytes 8.1 % (0.0-10.0); Hematocrit 45.1 % (42.0-52.0); Mean Platelet Volume 6.8 fL (7.4-10.4); Red Blood Cell (RBC) Count 4.64 mill/uL (4.70-6.10); White Blood Cell (WBC) Count 9.7 thou/uL (4.8-10.8)
[2016-12-20 12:05] LABS: Anion Gap 12 mmol/L (10-20); BUN (Urea Nitrogen) 11 mg/dL (8.4-25.7); Calc. Creatinine Clearance 0 mL/min (70-130); Calcium 9.1 mg/dL (7.8-10.44); Carbon Dioxide 27 mmol/L (22-29); Chloride 102 mmol/L (98-107); Estimated GFR-MDRD Greater than 90
== END 2016-12-20 09:39 | disposition home or self-care (01) ==
LOC: LABBT 09:38
PROVIDERS: ATTEND Thoracic Surgery (Cardiothoracic Vascular Surgery)
DX: Z01.818 Encounter for other preprocedural examination (principal); I25.10 Atherosclerotic heart disease of native coronary artery without angina pectoris
CPT/HCPCS: 71020; 80048; 85025; 86850; 86900; 86901

== ENCOUNTER 2017-06-23 13:24 | Outpatient (CLI) | payer BC ==
--- NOTE | 2017-06-23 15:13 | MRI ---
MRI OF THE LEFT KNEE: Date: 06-23-17 Provided Clinical History: Left knee pain. FINDINGS: Post-operative changes of ACL reconstruction are demonstrated, with an intact appearance to the ACL g raft. A posterior cruciate ligament, medial collateral ligament, lateral collateral ligamentous compl ex and patellar tendon appear intact. There are linear foci of increased signal intensity on fluid se nsitive sequences involving the distal quadriceps tendon suggesting tendinosis with minimal non-atten uating interstitial tearing. Susceptibility artifact is seen about the posterior horn of the medial meniscus. There is no evidence for grade III signal involving either meniscus. Articular cartilage irregularity is suggested involv ing the posterior weightbearing portions of the medial femoral condyle. Articular cartilage fissuring is seen involving the central aspects of the frontal cochlear cartilage. The amount of fluid within the knee joint appears physiologic. Regional marrow and muscular signal unaffected by the metallic susceptibility artifact appears normal . IMPRESSION: 1. Post-operative changes of ACL reconstruction with an intact appearance to the ACL graft. 2. Quadriceps tendinosis and minimal associated partial thickness interstitial non-attenuating tearin g. 3. Mild degenerative chondrosis involving the trochlear and medial femoral condylar articular cartila ge. POS: [facility]
== END 2017-06-23 13:25 | disposition home or self-care (01) ==
LOC: MRI 13:24
PROVIDERS: ATTEND Orthopaedic Surgery
DX: M25.562 Pain in left knee (principal); M76.892 Other specified enthesopathies of left lower limb, excluding foot; M24.152 Other articular cartilage disorders, left hip; Z98.890 Other specified postprocedural states

== ENCOUNTER 2017-07-22 12:52 | Outpatient (CLI) | payer BC ==
--- NOTE | 2017-07-22 13:43 | RAD ---
THREE VIEW LUMBAR SPINE SERIES: CLINICAL HISTORY: Lumbar radicular pain. FINDINGS: Lateral views of the lumbar spine are submitted without a frontal projection which limits assessment. Neutral view reveals no significant malalignment. No obvious translational motion with flexion and extension positioning. Multilevel end plate degenerative change with marked osteophytosis present. There is vascular calcification. IMPRESSION: No significant malalignment of the lumbar spine. POS: [facility]
--- NOTE | 2017-07-22 13:47 | RAD ---
CERVICAL SPINE 3 VIEWS: Date: 07/22/17 HISTORY: Neck pain. Prior surgery. FINDINGS: Anterior fixation is apparent at the C4-5-6 levels. Metallic markers associated with interbody fusion material at the postoperative levels are within the confines of the disc spaces. Vertebral body heig ht and alignment are maintained. No abnormal translational motion. Lower cervical spine and upper tho racic spine are obscured by the shoulders. IMPRESSION: Postoperative changes cervical spine. POS: [facility]
--- NOTE | 2017-07-22 14:06 | MRI ---
MRI OF BRAIN WITHOUT CONTRAST: CLINICAL HISTORY: Headache, dizziness, gait imbalance. FINDINGS: There is normal size of the ventricular system without evidence of territorial infarction, mass effec t, or midline shift. There is no significant parenchymal signal abnormality of the brain. No hemorr hagic susceptibility. The skull base flow voids are present, where visualized. IMPRESSION: No acute intracranial abnormalities. POS: [facility]
--- NOTE | 2017-07-22 14:32 | MRI ---
MRI CERVICAL SPINE NONCONTRAST: Date: 07/22/17 HISTORY: Neck pain. Prior surgery. Bilateral arm radiculopathy. FINDINGS: Vertebral body height and alignment are maintained. Bone marrow signal is partially obscured by metal lic susceptibility artifact from anterior fixation hardware. C2-3, C3-4, C4-5: Mild osteophytosis. Central canal and neural foramina are patent. C5-6: Postoperative changes. Mild central canal stenosis with circumferential degenerative changes. Moderat e to severe right foraminal stenosis. Left neural foramen is patent. C6-7: Mild central canal stenosis from circumferential degenerative changes. Neural foramina remain patent. C7-T1: Central canal and neural foramina are patent. IMPRESSION: Postoperative and multilevel degenerative changes. Stenosis is most pronounced at the right C5-6 neur al foramen. Clinical correlation regarding the right C6 dermatome is required. POS: [facility]
--- NOTE | 2017-07-22 14:42 | MRI ---
MRI LUMBAR SPINE NONCONTRAST: History: Low back pain. Radiculopathy. FINDINGS: Conus medullaris has a normal appearance. Vertebral body height and alignment are maintained. Bone ma rrow signal is within normal limits. T12-L1, L1-2, L2-3: Mild osteophytosis. Central canal and neural foramina are patent. L3-4: Minimal disc bulge. Thecal sac is patent. Degenerative changes result in mild right and moderat e left foraminal stenoses. L4-5: Posterior disc bulge and circumferential degenerative changes. Mild stenosis of the central can al. Moderate right and severe left foraminal stenosis. L5-S1: Minimal disc bulge. Thecal sac and neural foramina remain patent. IMPRESSION: Degenerative changes of the lumbar spine as detailed above with stenosis greatest at the left L4-5 ne ural foramen. Clinical correlation regarding the left L4 dermatome is required. POS: NED
== END 2017-07-22 12:53 | disposition home or self-care (01) ==
LOC: TBSIIMAG 12:52
PROVIDERS: ATTEND Neurological Surgery
DX: M47.26 Other spondylosis with radiculopathy, lumbar region (principal); M47.12 Other spondylosis with myelopathy, cervical region; R51 Headache; R20.9 Unspecified disturbances of skin sensation; R42 Dizziness and giddiness; R29.818 Other symptoms and signs involving the nervous system; M99.83 Other biomechanical lesions of lumbar region; M48.061 Spinal stenosis, lumbar region without neurogenic claudication; M99.81 Other biomechanical lesions of cervical region; M48.02 Spinal stenosis, cervical region; Z98.1 Arthrodesis status
CPT/HCPCS: 70551; 72040; 72100; 72141; 72148

== ENCOUNTER 2018-01-11 10:31 | Outpatient (CLI) | payer BC ==
--- NOTE | 2018-01-11 12:25 | RAD ---
PA AND LATERAL CHEST: History: Pain in the right lower chest and ribs. FINDINGS: Changes of median sternotomy. The heart size is borderline. The lungs are expanded without focal area s of consolidation, pneumothoraces or pleural effusions. There are degenerative changes in the spine. IMPRESSION: No radiographic evidence of acute cardiopulmonary process. POS: [facility]
== END 2018-01-11 10:32 | disposition home or self-care (01) ==
LOC: BICRAD 10:31
PROVIDERS: ATTEND Family Medicine
DX: R07.81 Pleurodynia (principal)
CPT/HCPCS: 71046

== ENCOUNTER 2018-02-24 08:19 | Outpatient (CLI) | payer BC ==
--- NOTE | 2018-02-24 15:58 | NM ---
NUCLEAR MEDICINE BRAIN IMAGIN/1 06/29 HISTORY: Tremor, unspecified. TECHNIQUE: A DaTscan with axial tomographic images of the brain was obtained three hours following the intraveno us administration of 4.5 millicuries Iodide 123 Ioflupane. The patient was pretreated with 130 mg of potassium iodide orally one hour prior to the infection. FINDINGS: There is normal symmetric uptake in the striata bilaterally, demonstrating symmetric, crescent shaped focal regions of activity mirrored about the median plane. IMPRESSION: Normal exam. POS: NED
== END 2018-02-24 08:20 | disposition home or self-care (01) ==
LOC: NM 08:19
PROVIDERS: ATTEND Psychiatry & Neurology Neurology
DX: R25.1 Tremor, unspecified (principal); R26.9 Unspecified abnormalities of gait and mobility
CPT/HCPCS: 78607; A9584

== ENCOUNTER 2021-09-11 08:43 | Observation (INO) | payer MEDICARE ==
[~2021-09-11 08:43] MED LIST: ISOVUE-370 76%-LOCM 1 ML ONE
[2021-09-11] MEDS ORDERED: Ketorolac Tromethamine 30 MG/ML VIAL ONE (09:14)
[2021-09-11] MEDS ORDERED: Ondansetron PF 4 MG/2 ML Vial ONE (09:14)
[2021-09-11 09:37] LABS: Hemoglobin 13.2 g/dL (14.0-18.0); Mean Corpuscular HGB CONC 33.2 g/dL (32.0-36.0); Mean Corpuscular Hemoglobin 32.1 pg (27.0-31.0); Mean Corpuscular Volume 96.7 fL (78.0-98.0); Mean Platelet Volume 7.2 fL (7.4-10.4); Platelet Count 213 thou/uL (130-400); RBC Distribution Width 11.3 % (11.5-14.5); Red Blood Cell (RBC) Count 4.12 mill/uL (4.70-6.10); White Blood Cell (WBC) Count 4.9 thou/uL (4.8-10.8)
[2021-09-11 09:50] LABS: ALT (SGPT) 14 U/L (8-55); AST (SGOT) 21 U/L (5-34); Albumin 3.9 g/dL (3.4-4.8); Alkaline Phosphatase 65 U/L (40-110); Anion Gap 17 mmol/L (10-20); BUN (Urea Nitrogen) 12 mg/dL (8.4-25.7); Bilirubin, Total 0.3 mg/dL (0.2-1.2); Calc. Creatinine Clearance 0 mL/min (70-130); Calcium 8.6 mg/dL (7.8-10.44); Carbon Dioxide 26 mmol/L (23-31); Chloride 98 mmol/L (98-107); Estimated GFR 54; Globulin 2.8 g/dL (2.4-3.5); Glucose 131 mg/dL (80-115); Protein, Total 6.7 g/dL (5.8-8.1); Sodium 137 mmol/L (136-145)
[2021-09-11 09:55] LABS: Band 16 % (5-11); Lymphocytes 11 % (21-51); MDiff Complete? YES; Monocytes 12 % (0-10); Neutrophil 52 % (42-75); Platelet Morphology Comment Appears Adequate; RBC Morphology Normal; Reactive Lymphocytes 9 % (0-10)
[2021-09-11 10:15] LABS: SARS-CoV-2 NAA Rapid Test DETECTED (NotDetected)
[2021-09-11] MEDS ORDERED: Dexamethasone 10 MG/ML VIAL ONE (12:01)
[2021-09-11] MEDS ORDERED: hydrALAZINE 20 MG/ML VIAL SLOW IVP PRN (14:36)
[2021-09-11] MEDS ORDERED: Acetaminophen 325 MG TAB PO PRN (14:36)
[2021-09-11] MEDS ORDERED: Cepastat Lozenges 1 LOZ PO PRN (14:36)
[2021-09-11] MEDS ORDERED: Ondansetron PF 4 MG/2 ML Vial IVP PRN (14:36)
[2021-09-11] MEDS ORDERED: Ondansetron ODT 4 MG TAB PO PRN (14:36)
[2021-09-11] MEDS ORDERED: Acetaminophen 650 MG Suppository PR PRN (14:36)
[2021-09-11] MEDS ORDERED: Benzonatate 100 MG CAP PO PRN (14:36)
[2021-09-11] MEDS ORDERED: Albuterol 200 PUFF (6.7GM INHALER) INH PRN (14:36)
[2021-09-11 16:52] LABS: Bilirubin Negative (Negative); Blood, Urine Negative (Negative); Clarity Clear (Clear); Glucose, Urine (Dipstick) Normal (Negative); Ketone, Urine Negative (Negative); Leukocyte Negative Leu/uL (Negative); Nitrite Negative (Negative); Protein, Urine (Dipstick) Negative (Neg-Trace); Specific Gravity, Urine 1.013 (1.002-1.036); Urobilinogen Normal mg/dL (Less than 2); pH, Urine 6.5 (5.0-9.0)
[2021-09-11] MEDS: Sodium Chloride 0.9% 1,000 ML IV SCH (18:40)
[2021-09-11 18:47] VITALS: BMI 23.0
[2021-09-11] MEDS ORDERED: ALPRAZolam 1 MG TAB PO PRN (18:51)
[2021-09-11] MEDS ORDERED: Famotidine 20 MG TAB PO SCH (21:00)
[2021-09-11] MEDS ORDERED: LUNESTA 3 MG PO SCH (21:00)
[2021-09-11] MEDS ORDERED: Zolpidem Tartrate 5 MG TAB PO SCH (21:00)
[2021-09-12] MEDS: Sodium Chloride 0.9% 1,000 ML IV SCH (00:40)
[2021-09-12 06:28] LABS: #Basophils 0.1 thou/uL (0.0-0.2); #Lymphocytes 0.9 thou/uL (1.20-3.40); #Monocytes 0.4 thou/uL (0.11-0.59); #Neutrophils 2.2 thou/uL (1.40-6.50); %Basophils 2.1 % (0.0-1.0); %Eosinophils 0.2 % (0.0-10.0); %Monocytes 11.7 % (0.0-10.0); Hemoglobin 11.5 g/dL (14.0-18.0); Mean Corpuscular HGB CONC 32.5 g/dL (32.0-36.0); Mean Corpuscular Volume 98.4 fL (78.0-98.0); Mean Platelet Volume 7.2 fL (7.4-10.4); Platelet Count 181 thou/uL (130-400); RBC Distribution Width 11.2 % (11.5-14.5); White Blood Cell (WBC) Count 3.7 thou/uL (4.8-10.8)
[2021-09-12 06:49] LABS: ALT (SGPT) 14 U/L (8-55); AST (SGOT) 26 U/L (5-34); Albumin 3.3 g/dL (3.4-4.8); Alkaline Phosphatase 52 U/L (40-110); Anion Gap 12 mmol/L (10-20); BUN (Urea Nitrogen) 18 mg/dL (8.4-25.7); Bilirubin, Total 0.2 mg/dL (0.2-1.2); Calc. Creatinine Clearance 87 mL/min (70-130); Calcium 8.2 mg/dL (7.8-10.44); Carbon Dioxide 28 mmol/L (23-31); Chloride 104 mmol/L (98-107); Estimated GFR 91; Globulin 2.2 g/dL (2.4-3.5); Glucose 131 mg/dL (80-115); Potassium 4.6 mmol/L (3.5-5.1); Protein, Total 5.5 g/dL (5.8-8.1); Sodium 139 mmol/L (136-145)
[2021-09-12] MEDS ORDERED: Icosapent Ethyl 1 GM CAPSULE PO SCH (08:00)
[2021-09-12] MEDS ORDERED: Dexamethasone 4 MG TAB PO SCH (08:00)
[2021-09-12] MEDS ORDERED: Cholecalciferol (Vitamin D3) 400 UNITS TAB PO SCH (09:00)
[2021-09-12] MEDS ORDERED: Enoxaparin Sodium 40 MG/0.4 ML SYRINGE SC SCH (09:00)
[2021-09-12] MEDS ORDERED: Zinc Sulfate 220 MG CAP PO SCH (09:00)
[2021-09-12] MEDS ORDERED: Ascorbic Acid 500 mg Chewable Tablet PO SCH (09:00)
[2021-09-12 09:13] VITALS: BP 109/67; TEMP 97.6
== END 2021-09-12 10:28 | disposition home or self-care (01) ==
LOC: ERS 08:43 → ERHOLD 13:35 → T4-B 16:56
PROVIDERS: ADMIT Internal Medicine; ATTEND Internal Medicine
DX: U07.1 COVID-19 (principal); N17.9 Acute kidney failure, unspecified; E87.2 Acidosis; I25.10 Atherosclerotic heart disease of native coronary artery without angina pectoris; E78.5 Hyperlipidemia, unspecified; I10 Essential (primary) hypertension; Z28.310 Unvaccinated for COVID-19; Z87.891 Personal history of nicotine dependence; Z79.82 Long term (current) use of aspirin; Z79.899 Other long term (current) drug therapy; Z88.5 Allergy status to narcotic agent; Z88.6 Allergy status to analgesic agent; Z88.8 Allergy status to other drugs, medicaments and biological substances; Z95.1 Presence of aortocoronary bypass graft
CPT/HCPCS: 71045; 71275; 80053 ×2; 81003; 83605; 84484; 85025 ×2; 85379; 86140; 87040; 87086; 93005; 96361; 96374; 96375; 99285; U0002; 36415; G0378; J1100; J1885; J2405; J7050; J8540; Q9966

== ENCOUNTER 2022-10-17 12:19 | Emergency (ER) | payer MEDICARE ==
[2022-10-17 13:50] LABS: #Basophils 0.1 thou/uL (0.0-0.2); #Eosinphils 0.1 thou/uL (0.0-0.7); #Monocytes 0.8 thou/uL (0.11-0.59); %Basophils 0.7 % (0.0-1.0); %Eosinophils 0.6 % (0.0-10.0); %Lymphocytes 28.7 % (21.0-51.0); %Monocytes 8.1 % (0.0-10.0); %Neutrophils 61.7 % (42.0-75.0); Hemoglobin 13.7 g/dL (14.0-18.0); Mean Corpuscular HGB CONC 33.4 g/dL (32.0-36.0); Mean Corpuscular Hemoglobin 31.4 pg (27.0-31.0); Mean Corpuscular Volume 93.8 fl (78.0-98.0); Mean Platelet Volume 9.1 fL (7.4-10.4); Platelet Count 288 10x3/uL (130-400); RBC Distribution Width 12.2 % (11.5-14.5); Red Blood Cell (RBC) Count 4.37 mill/uL (4.70-6.10); White Blood Cell (WBC) Count 9.7 10x3/uL (4.8-10.8)
[2022-10-17 14:02] LABS: Prothrombin Time 13.2 sec (12.0-14.7)
[2022-10-17 14:03] LABS: PTT 27.3 sec (22.9-36.1)
[2022-10-17 14:19] LABS: ALT (SGPT) 19 U/L (8-55); AST (SGOT) 18 U/L (5-34); Albumin 4.2 g/dL (3.4-4.8); Alkaline Phosphatase 72 U/L (40-110); Anion Gap 15 mmol/L (10-20); BUN (Urea Nitrogen) 6 mg/dL (8.4-25.7); Bilirubin, Total 0.3 mg/dL (0.2-1.2); CK (CPK) 47 U/L (30-200); Calc. Creatinine Clearance 0 mL/min (70-130); Calcium 8.6 mg/dL (7.8-10.44); Carbon Dioxide 24 mmol/L (23-31); Chloride 105 mmol/L (98-107); Estimated GFR 88; Globulin 2.6 g/dL (2.4-3.5); Glucose 94 mg/dL (80-115); Lipase 53 U/L (8-78); Potassium 4.6 mmol/L (3.5-5.1); Protein, Total 6.8 g/dL (5.8-8.1); Sodium 139 mmol/L (136-145)
== END 2022-10-17 16:15 | disposition home or self-care (01) ==
LOC: ERS 12:19
DX: R53.83 Other fatigue (principal); I10 Essential (primary) hypertension
CPT/HCPCS: 36415; 71045; 80053; 82550; 83690; 84484; 85025; 85610; 85730; 93005